=== PATIENT | female | born 1985 | race African-American/Black ===

== ENCOUNTER 2016-10-02 12:20 | Emergency (ER) | payer BC ==
[~2016-10-02] VITALS: Ht 157.5 cm; Wt 79.5 kg
[~2016-10-02 12:20] MED LIST: AMBIEN 10MG10 MG PO; CEFTIN500 MG PO; CEPHALEXIN500 M1 PO; DEPO MEDROL40 MG/ML IJ; FLEXERIL 1010 MG/TAB PO; MOTRIN 600600 MG/TAB PO; NAPROSYN500 MG PO; NORCO 325 MG-51 TAB PO; PERCOCET 325 MG1 TA2 PO; PYRIDIUM 100MG100 MG PO; PYRIDIUM200 M1 PO
[2016-10-02 12:28] VITALS: BP 123/76; PULSE 83; TEMP 98.4
== END 2016-10-02 14:11 | disposition home or self-care (01) ==
LOC: COL.ER 12:20
DX: J02.8 Acute pharyngitis due to other specified organisms (principal); F17.210 Nicotine dependence, cigarettes, uncomplicated

== ENCOUNTER 2016-11-27 11:16 | Emergency (ER) | payer BC ==
[~2016-11-27] VITALS: Ht 157.5 cm; Wt 79.5 kg
[2016-11-27 11:19] VITALS: TEMP 98.3
[2016-11-27 11:59] LABS: BASO % 0.4 % (0.0-2.0); EOS # 0.1 (0.0-0.7); EOS % 1.9 % (0-4.0); GRAN # 2.3 (1.4-6.5); GRAN % 43.4 % (42.2-75.2); HEMATOCRIT 37.2 % (37.0-47.0); LYMPH # 2.3 (1.2-3.4); LYMPH % 44.8 % (20.0-51.0); MEAN CELL VOLUME 81 fl (80.0-100.0); MEAN CORPUSCULAR HEMOGLOBIN 25 pg (27.0-31.0); MEAN CORPUSCULAR HGB CONC 31 g/dl (33.0-37.0); MEAN PLATELET VOLUME 10.1 fl (7.4-10.4); MONO # 0.5 (0.1-0.6); MONO % 9.5 % (1.7-9.3); PLATELET COUNT 279 K/mm3 (130-400); RED BLOOD COUNT 4.57 M/mm3 (4.10-5.30); REDCELL DISTRIBUTION WIDTH-CV 15.2 % (11.5-14.5); WHITE BLOOD COUNT 5.2 K/mm3 (4.8-10.8)
[2016-11-27 12:03] LABS: HEMOGLOBIN 11.5 g/dl (12.5-16.0)
[2016-11-27 12:06] LABS: ALANINE AMINOTRANSFERASE 25 U/L (9-52); ALBUMIN 4.4 gm/dL (3.5-5.0); ALKALINE PHOSPHATASE 64 U/L (50-136); ANION GAP 13 mmol/L (7-16); BILIRUBIN,TOTAL 0.7 mg/dL (0.0-1.0); BLOOD UREA NITROGEN 7 mg/dL (7-17); CALCIUM 9.3 mg/dL (8.4-10.2); CARBON DIOXIDE 25 mmol/L (22-30); CHLORIDE 103 mmol/L (98-107); CREATININE, serum 0.73 mg/dL (0.52-1.25); GLUCOSE 97 mg/dL (74-106); POTASSIUM 3.6 mmol/L (3.4-5.0); SODIUM 141 mmol/L (137-145); TOTAL PROTEIN 7.9 gm/dL (6.4-8.2)
[2016-11-27 12:15] LABS: ACETAMINOPHEN < 10 ug/mL (10-30); SALICYLATE < 1.0 mg/dL
[2016-11-27 12:27] LABS: AMPHETAMINE URINE NEGATIVE; BARBITURATES URINE NEGATIVE; BENZODIAZEPINES URINE NEGATIVE; BUPRENORPHINE URINE NEGATIVE; METHADONE URINE NEGATIVE; OPIATES URINE NEGATIVE; OXYCODONE URINE NEGATIVE; PHENCYCLIDINE URINE NEGATIVE; PROPOXYPHENE URINE NEGATIVE; THC CANNABINOIDS URINE NEGATIVE
[2016-11-27 15:28] VITALS: BP 116/65; PULSE 86
== END 2016-11-27 15:28 | disposition home or self-care (01) ==
LOC: COL.ER 11:16
PROVIDERS: Physician Assistant
DX: F32.9 Major depressive disorder, single episode, unspecified (principal); R45.851 Suicidal ideations

== ENCOUNTER 2017-01-19 19:58 | Emergency (ER) | payer BC ==
[~2017-01-19] VITALS: Ht 157.5 cm; Wt 77.3 kg
[2017-01-19 20:01] VITALS: BP 126/68; TEMP 98
[2017-01-19] MEDS ORDERED: ZOLOFT 25MG25 MG PO (20:04)
[2017-01-19 22:03] VITALS: PULSE 70
[2017-01-19] MEDS ORDERED: FLEXERIL 1010 MG/TAB PO (22:06)
== END 2017-01-19 22:15 | disposition home or self-care (01) ==
LOC: COL.ER 19:58
DX: M54.42 Lumbago with sciatica, left side (principal); M62.830 Muscle spasm of back
CPT/HCPCS: J1170; J1885; J3360

== ENCOUNTER 2017-01-23 12:50 | Emergency (ER) | payer BC ==
[~2017-01-23] VITALS: Ht 157.5 cm; Wt 79.5 kg
[~2017-01-23 12:50] MED LIST changes: +ZOLOFT 25MG25 MG PO
[2017-01-23 12:53] VITALS: BP 114/57; TEMP 98
[2017-01-23] MEDS ORDERED: NORCO 325 MG-51 TAB PO (14:25)
[2017-01-23 14:31] VITALS: PULSE 86
== END 2017-01-23 14:32 | disposition home or self-care (01) ==
LOC: COL.ER 12:50
DX: M54.42 Lumbago with sciatica, left side (principal)
CPT/HCPCS: J1885; J3360

== ENCOUNTER → 2017-06-25 | Outpatient (CLI) | payer OTHER | LOC: MHCPAIN 08:58 | DX: G89.29 Other chronic pain (principal); M47.27 Other spondylosis with radiculopathy, lumbosacral region | CPT/HCPCS: G0463 ==

== ENCOUNTER 2017-07-16 16:43 | Emergency (ER) | payer OTHER ==
[~2017-07-16] VITALS: Ht 157.5 cm; Wt 77.3 kg
[2017-07-16 16:45] VITALS: TEMP 99.2
[2017-07-16 17:20] LABS: TRICYCLIC ANTIDEPRESS URINE NEGATIVE
[2017-07-16 17:26] LABS: BASO % 0.6 % (0.0-2.0); EOS # 0.1 (0.0-0.7); EOS % 1.5 % (0-4.0); GRAN # 2.4 (1.4-6.5); GRAN % 50.3 % (42.2-75.2); LYMPH # 1.9 (1.2-3.4); LYMPH % 40.4 % (20.0-51.0); MEAN CELL VOLUME 81 fl (80.0-100.0); MEAN CORPUSCULAR HGB CONC 31 g/dl (33.0-37.0); MONO # 0.3 (0.1-0.6); PLATELET COUNT 321 K/mm3 (130-400); RED BLOOD COUNT 4.53 M/mm3 (4.10-5.30); REDCELL DISTRIBUTION WIDTH-CV 15.4 % (11.5-14.5)
[2017-07-16 17:39] LABS: HEMATOCRIT 36.5 % (37.0-47.0); HEMOGLOBIN 11.3 g/dl (12.5-16.0); MEAN CORPUSCULAR HEMOGLOBIN 25 pg (27.0-31.0)
[2017-07-16 17:39] LABS: ALANINE AMINOTRANSFERASE 29 U/L (9-52); ALBUMIN 4.6 gm/dL (3.5-5.0); ALKALINE PHOSPHATASE 76 U/L (50-136); ANION GAP 10 mmol/L (7-16); AST,SGOT 22 U/L (15-37); BILIRUBIN,TOTAL 0.7 mg/dL (0.0-1.0); BLOOD UREA NITROGEN 9 mg/dL (7-17); CALCIUM 9.6 mg/dL (8.4-10.2); CARBON DIOXIDE 25 mmol/L (22-30); CHLORIDE 107 mmol/L (98-107); CREATININE, serum 0.68 mg/dL (0.52-1.25); GLUCOSE 83 mg/dL (74-106); POTASSIUM 3.5 mmol/L (3.4-5.0); SODIUM 142 mmol/L (137-145); TOTAL PROTEIN 8.2 gm/dL (6.4-8.2)
[2017-07-16 17:40] LABS: ACETAMINOPHEN < 10 ug/mL (10-30); ALCOHOL(ethanol),MEDICAL < 10 mg/dL; SALICYLATE < 1.0 mg/dL
[2017-07-16 20:05] VITALS: BP 118/69; PULSE 71
== END 2017-07-16 20:05 | disposition home or self-care (01) ==
LOC: COL.ER 16:43
PROVIDERS: Emergency Medicine
DX: R45.851 Suicidal ideations (principal); R45.850 Homicidal ideations; F31.9 Bipolar disorder, unspecified

== ENCOUNTER → 2017-07-29 | Outpatient (CLI) | payer OTHER | LOC: MHCPAIN 11:56 | DX: G89.29 Other chronic pain (principal); M47.27 Other spondylosis with radiculopathy, lumbosacral region; M51.17 Intervertebral disc disorders with radiculopathy, lumbosacral region | CPT/HCPCS: G0463; J1100; J2250; J3010; Q9967 ==

== ENCOUNTER → 2017-08-11 | Outpatient (CLI) | payer OTHER | LOC: MHCPAIN 09:19 | DX: G89.29 Other chronic pain (principal); M47.27 Other spondylosis with radiculopathy, lumbosacral region | CPT/HCPCS: G0463 ==

== ENCOUNTER → 2017-09-09 | Outpatient (CLI) | payer OTHER | LOC: MHCPAIN 08:56 | DX: M47.817 Spondylosis without myelopathy or radiculopathy, lumbosacral region (principal) ==

== ENCOUNTER → 2017-09-21 | Outpatient (CLI) | payer OTHER | LOC: MHCPAIN 09:14 | DX: G89.29 Other chronic pain (principal); M47.817 Spondylosis without myelopathy or radiculopathy, lumbosacral region; M54.16 Radiculopathy, lumbar region | CPT/HCPCS: G0463 ==

== ENCOUNTER 2017-10-06 15:14 | Emergency (ER) | payer OTHER, MEDICAID ==
[~2017-10-06] VITALS: Ht 157.5 cm; Wt 77.3 kg
[2017-10-06] MEDS ORDERED: FLEXERIL 1010 MG/TAB PO (15:52)
[2017-10-06 16:03] VITALS: BP 117/59; PULSE 90; TEMP 98.6
== END 2017-10-06 16:05 | disposition other institution (70) ==
LOC: COL.ER 15:14
DX: S16.1XXA Strain of muscle, fascia and tendon at neck level, initial encounter (principal); F31.9 Bipolar disorder, unspecified; V43.52XA Car driver injured in collision with other type car in traffic accident, initial encounter

== ENCOUNTER → 2017-10-06 | Outpatient (CLI) | payer OTHER | LOC: MHCPAIN 14:35 | DX: Z53.8 Procedure and treatment not carried out for other reasons (principal) ==

== ENCOUNTER → 2017-10-28 | Outpatient (CLI) | payer OTHER, MEDICAID ==
[~2017-10-28] MED LIST changes: +AMOXICILLIN 50500 MG PO
== END ==
LOC: MHCPAIN 13:04
DX: M47.817 Spondylosis without myelopathy or radiculopathy, lumbosacral region (principal)

== ENCOUNTER 2017-11-01 11:47 | Emergency (ER) | payer OTHER, MEDICAID ==
[~2017-11-01] VITALS: Ht 154.9 cm; Wt 77.3 kg
[~2017-11-01 11:47] MED LIST changes: -AMOXICILLIN 50500 MG PO
[2017-11-01 11:54] VITALS: BP 105/62; TEMP 98.9
[2017-11-01] MEDS ORDERED: AMOXICILLIN 50500 MG PO (12:32)
[2017-11-01 12:46] VITALS: PULSE 81
== END 2017-11-01 12:46 | disposition home or self-care (01) ==
LOC: COL.ER 11:47
DX: J30.2 Other seasonal allergic rhinitis (principal); F31.9 Bipolar disorder, unspecified; F43.10 Post-traumatic stress disorder, unspecified; Z87.891 Personal history of nicotine dependence

== ENCOUNTER → 2017-11-01 | Outpatient (CLI) | payer OTHER, MEDICAID | LOC: MHCPAIN 12:55 | DX: G89.29 Other chronic pain (principal); M47.817 Spondylosis without myelopathy or radiculopathy, lumbosacral region; M53.3 Sacrococcygeal disorders, not elsewhere classified | CPT/HCPCS: G0463 ==

== ENCOUNTER → 2017-12-02 | Outpatient (CLI) | payer OTHER, MEDICAID ==
[~2017-12-02] MED LIST changes: +AMOXICILLIN 50500 MG PO
== END ==
LOC: MHCPAIN 09:50
DX: M47.817 Spondylosis without myelopathy or radiculopathy, lumbosacral region (principal); M51.36 Other intervertebral disc degeneration, lumbar region
CPT/HCPCS: J1100; J2250; J3010

== ENCOUNTER → 2017-12-09 | Outpatient (CLI) | payer OTHER, MEDICAID | LOC: MHCPAIN 10:27 | DX: M47.817 Spondylosis without myelopathy or radiculopathy, lumbosacral region (principal) | CPT/HCPCS: J1100; J2250; J3010 ==